=== PATIENT | male | born 1960 | race African-American/Black ===

== ENCOUNTER 2016-04-19 19:25 | Emergency (ER) | payer MEDICAID ==
[2016-04-19 19:38] VITALS: BP 106/62; PULSE 102; TEMP 99.1; BMI 19.8
--- NOTE | 2016-04-19 20:14 | DIRPT ---
CLINICAL DATA: Slipped and fell on steps EXAM: SACRUM AND COCCYX - 2+ VIEW COMPARISON: CT abdomen pelvis 07/01/2008 FINDINGS: No evidence of displaced fracture of the sacrum or coccyx. Hips are located.. IMPRESSION: No evidence fracture. Electronically Signed By: Cirilo Gee M.D. On: 04/19/2016 20:12
--- NOTE | 2016-04-19 20:18 | DIRPT ---
CLINICAL DATA: 55-year-old male with a history of fall. Elbow pain. EXAM: LEFT ELBOW - COMPLETE 3+ VIEW COMPARISON: 12/03/2014 FINDINGS: Postsurgical changes of prior distal humerus fixation, proximal ulnar fixation, and associated posttraumatic deformity. No acute fracture identified. No significant soft tissue swelling. Alignment is unchanged from the comparison. IMPRESSION: Similar appearance of post surgical fixation of distal humerus fracture and proximal ulnar fracture, with posttraumatic deformity. No evidence of acute bony abnormality. Signed, Cachorro Multani DO [facility] Electronically Signed By: Cachorro Multani D.O. On: 04/19/2016 20:16
--- NOTE | 2016-04-19 20:40 | EDPRACDOC ---
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 Denies LOC, vision changes, n/v, cp, sob, abd pain, loss of control bowel or bladder, numbness. Pain Severity: Reports: Moderate Injuries/Pain Location: Reports: upper extremity, back Reason for Fall: Reports: slipped Loss of Consciousness: no loss of consciousness Modifying Factors: worse with: cold therapy, immobilization, jarring, movement, pain medication, rest, other Associated Symptoms (Fall): Reports: denies symptoms Allergies/Adverse Reactions: Allergies ibuprofen Allergy (Severe, Verified 03/30/16 10:28) Bleeding tramadol Allergy (Verified 03/30/16 10:28) Bleeding Home Medications: Ambulatory Orders Cyclobenzaprine HCl [Flexeril] 10 mg PO TID PRN #15 tablet 04/07/16 Hydrocodone Bit/Acetaminophen [Lortab 5/325] 1 tab PO Q4-6H PRN #10 tab Oxycodone HCl/Acetaminophen [Percocet 10-325 mg Tablet] 1 each PO BID 04/07/16 Acetaminophen [Tylenol] 650 mg PO Q6H PRN #30 tablet 04/19/16 Cyclobenzaprine HCl [Flexeril] 10 mg PO TID PRN #15 tablet 04/19/16 ED Past Medical History - History Reviewed Yes Nurses notes reviewed and agree except as marked - Patient Medical History Musculoskeletal History: Reports: Arthritis Psychological History: Reports: Depression Additional Past Medical History: Chronic Pain Syndrome Surgical History: Reports: Other (Elbow Surgery; FACIAL [employer] SX) - Social Medical History Smoking Status: Light tobacco smoker (less than 5/day) ETOH: Social Substance Abuse: None EDM Review of Systems - Review of Systems Constitutional: No Symptoms Reported. negative: Fever, Chills, Weakness, Fatigue, Loss of Appetite Eyes: No Symptoms Reported. negative: Redness, Blurred Vision, Double Vision, Discharge, Pain, Light Sensitive, Photophobia Respiratory: No Symptoms Reported. negative: Cough, Brassy Cough, Barky Cough, Shortness of Breath, Wheezing, Hemoptysis Cardiovascular: No Symptoms Reported. negative: Chest Pain, Palpitations, Syncope, Edema, Orthopnea, PND, Skin Mottling, Cyanosis Gastrointestinal: No Symptoms Reported. negative: Pain, Constipation, Nausea, Vomiting, Diarrhea, Melena, Formula Intolerance Genitourinary: No Symptoms Reported. negative: Dysuria, Hematuria, Frequency, Discharge, Bleeding, Testicular Pain, Neurological: No Symptoms Reported. negative: Headache, Dizziness, Seizure, Numbness, Weakness, Speech Difficulty, Gait Difficulty Musculoskeletal: Back, Elbow Integumentary: No Symptoms Reported. negative: Itching, Rash, Bruising, Wound Allergic/Immunologic: No Symptoms Reported. negative: Hives, Itching Hematologic: No Symptoms Reported. negative: Lymphadenopathy, Easy Bruising, Easy Bleeding Psychiatric: No Symptoms Reported. negative: Anxiety, Depression, Hallucinations, Insomnia, Suicidal - Physical Exam Constitutional: Alert (Awake), No apparent distress Oriented to: Time, Person, Place Last recorded Vital Signs: Last Vital Signs Temp 99.1 F 04/19/16 19:34 Pulse 102 04/19/16 19:34 Resp 20 04/19/16 19:34 BP 106/62 04/19/16 19:34 Pulse Ox 98 04/19/16 19:34 Oxygen Pulse Oxygen Saturation 98 O2 Device Room Air Oxygen Flow Rate Fraction of Inspired Oxygen ( FIO2) - HEENT Head: Normal ( normocephalic) Eye Exam: Normal (PERRL, EOMI, Sclera white) Neck: Normal (FROM, trachea at midline) - Respiratory/Cardiovascular Respiratory: Normal - CTA (BBS clear to auscultation without adventitious sounds ) Cardiovascular: Normal (RRR without murmur, gallop or rub) - GI Auscultation: Normal (NABS) Palpation: Normal (Soft,No rebound or guarding, non distended) Tenderness: Non tender - Musculoskeletal Back: Normal (Non-Tender) Extremities: Normal (Normal tone, Pulses 2+ No cyanosis or edema, FROM) - Integumentary Skin: Normal, Warm, Dry Lymphatics: Normal (no adenopathy) - Neurologic Memory Impaired: Normal Motor Function: Normal (Normal tone, Pulses 2+ No cyanosis or edema, FROM) Mood Description: Normal Perception: Normal ED Injury/Fall Exam - Physical Exam Head Injury: no evidence of injury Extremity Exam: no evidence of injury, normal range of motion, non-tender, no pedal edema Skin: Normal, Warm, Dry - Aren Coma Score Best Eye Response (Aren): (4) open spontaneously Best Verbal Response (Aren): (5) oriented Best Motor Response (Lamona): (6) obeys commands [place]ona Total: 15 - Differential Diagnosis Contusion, Fracture, Mechanical Fall, Sprain, Strain - Diagnostic Imaging Elbow Image interpreted by: Radiologist IMPRESSION: Similar appearance of post surgical fixation of distal humerus fracture and proximal ulnar fracture, with posttraumatic deformity. No evidence of acute bony abnormality. L-Spine Image interpreted by: Radiologist IMPRESSION: No evidence fracture. Decision Time to Discharge: 20:37 - Departure Disposition: Home Condition: Good Final Diagnosis: Coccyx contusion Qualifiers: Encounter type: initial encounter Qualified Code(s): S30.0XXA - Contusion of lower back and pelvis, initial encounter Strain of left elbow Qualifiers: Encounter type: initial encounter Qualified Code(s): S56.912A - Strain of unspecified muscles, fascia and tendons at forearm level, left arm, initial encounter Instructions: RICE: Routine Care for Injuries, Coccyx Injury (ED), Elbow Sprain (ED) Education/Counseling Given To: Patient Education/Counseling Given Regarding: Diagnosis, Treatment, Follow Up Referrals: None,No Provider [Primary Care Provider] - One Week Kary Rodriguez MD [Staff Physician] - One Week Florian Combs MD [Staff Physician] - One Week Prescriptions: Acetaminophen [Tylenol] 650 mg PO Q6H PRN #30 tablet PRN Reason: Pain Cyclobenzaprine HCl [Flexeril] 10 mg PO TID PRN #15 tablet PRN Reason: Pain Additional Instructions: Follow up with Personal MD for further pain management.
== END 2016-04-19 20:44 | disposition home or self-care (01) ==
LOC: EDMC 19:25
DX: S30.0XXA Contusion of lower back and pelvis, initial encounter (principal); S56.912A Strain of unspecified muscles, fascia and tendons at forearm level, left arm, initial encounter; W01.0XXA Fall on same level from slipping, tripping and stumbling without subsequent striking against object, initial encounter; Y93.9 Activity, unspecified
CPT/HCPCS: 72220; 99283

== ENCOUNTER 2016-04-20 07:37 | Emergency (ER) | payer MEDICAID ==
[2016-04-20 07:52] VITALS: TEMP 98.3; BMI 18.3
[2016-04-20] MEDS ORDERED: OXYCODONE HCL 5 MG TABLET PO ONE (08:45)
--- NOTE | 2016-04-20 08:48 | EDPRACDOC ---
- General Chief Complaint: Fall Stated Complaint: FALL,TAILBONE PAIN Time Seen by Provider: 04/20/16 08:35 Information Source: Patient - History of Present Illness Onset: last night HPI: PATIENT STATES HE FELL BACKWARD LAST NIGHT FROM STANDING. COMPLAINS OF COCCYX PAIN. STATE HE WAS EVALUATED LAST NIGHT WITH XRAYS AND STATES NO FRACTURES. GIVE TYLENOL FOR HOME WHICH HE STATES IS NOT HELPING. Pain Severity: Reports: Mild Injuries/Pain Location: Reports: back Reason for Fall: Reports: lost balance Loss of Consciousness: no loss of consciousness Allergies/Adverse Reactions: Allergies ibuprofen Allergy (Severe, Verified 04/20/16 07:50) Bleeding tramadol Allergy (Verified 04/20/16 07:50) Bleeding Home Medications: Ambulatory Orders Cyclobenzaprine HCl [Flexeril] 10 mg PO TID PRN #15 tablet 04/07/16 Hydrocodone Bit/Acetaminophen [Lortab 5/325] 1 tab PO Q4-6H PRN #10 tab Oxycodone HCl/Acetaminophen [Percocet 10-325 mg Tablet] 1 each PO BID 04/07/16 Acetaminophen [Tylenol] 650 mg PO Q6H PRN #30 tablet 04/19/16 Cyclobenzaprine HCl [Flexeril] 10 mg PO TID PRN #15 tablet 04/19/16 Oxycodone HCl/Acetaminophen [Percocet 5-325 mg Tablet] 1 each PO Q4 #14 tablet 04/20/16 ED Past Medical History - History Reviewed Yes Nurses notes reviewed and agree except as marked Travel Outside of [place] in the Last 3 Months?: No - Patient Medical History Musculoskeletal History: Reports: Arthritis Psychological History: Denies: Depression Additional Past Medical History: Chronic Pain Syndrome Surgical History: Reports: Other (Elbow Surgery; FACIAL RECONSTRUCTIVE SX) - Social Medical History Smoking Status: Light tobacco smoker (less than 5/day) Lives With: Family Lives In: Home EDM Review of Systems - Review of Systems ROS Negative Except as Marked: Yes All systems reviewed and were negative except as marked Constitutional: No Symptoms Reported. negative: Chills, Fever, Fatigue, Loss of Appetite, Weakness Eyes: No Symptoms Reported. negative: Redness, Blurred Vision, Double Vision, Discharge, Pain, Light Sensitive, Photophobia Ears: No Symptoms Reported. negative: Pain, Hearing Loss, Drainage, Ear Pulling Throat: No Symptoms Reported. negative: Pain, Swelling Nose: No Symptoms Reported. negative: Congestion, Bleeding, Discharge, Injection, Swelling, Deformity, Ecchymosis, Tender, Abrasion, Laceration Mouth: No Symptoms Reported. negative: Pain, Drooling Respiratory: No Symptoms Reported. negative: Cough, Brassy Cough, Barky Cough, Shortness of Breath, Wheezing, Hemoptysis Cardiovascular: No Symptoms Reported. negative: Chest Pain, Palpitations, Syncope, Edema, Orthopnea, PND, Skin Mottling, Cyanosis Gastrointestinal: No Symptoms Reported. negative: Pain, Constipation, Nausea, Vomiting, Diarrhea, Melena, Formula Intolerance Genitourinary: No Symptoms Reported. negative: Dysuria, Hematuria, Frequency, Discharge, Bleeding, Testicular Pain, Neurological: No Symptoms Reported. negative: Headache, Dizziness, Seizure, Numbness, Weakness, Speech Difficulty, Gait Difficulty Musculoskeletal: Back. negative: Arm, Ankle, Chestwall, Elbow, Forearm, Femur, Foot, Hand, Hip, Knee, Leg, Neck, Pelvis, Ribs, Shoulder, Wrist Integumentary: No Symptoms Reported. negative: Itching, Rash, Bruising, Wound Allergic/Immunologic: No Symptoms Reported. negative: Hives, Itching Hematologic: No Symptoms Reported. negative: Lymphadenopathy, Easy Bruising, Easy Bleeding Endocrine: No Symptoms Reported. negative: Weight Gain, Weight Loss Psychiatric: No Symptoms Reported. negative: Anxiety, Depression, Hallucinations, Insomnia, Suicidal - Physical Exam Constitutional: Alert (Awake), No apparent distress Oriented to: Time, Person, Place Last recorded Vital Signs: Last Vital Signs Temp 98.3 F 04/20/16 07:50 Pulse 79 04/20/16 07:50 Resp 18 04/20/16 07:50 BP 128/72 04/20/16 07:50 Pulse Ox 98 04/20/16 07:50 Oxygen Pulse Oxygen Saturation 98 O2 Device Room Air Oxygen Flow Rate Fraction of Inspired Oxygen ( FIO2) - HEENT Head: Normal ( normocephalic) Eye Exam: Normal (PERRL, EOMI, Sclera white) Oropharynx: Normal (Pharynx:Moist without exudate,Gums-no swelling) Tympanic Membrane: Normal ENT EAC: Normal TMJ: Normal Nose: No Symptoms Reported (septum midline) Neck: Normal (FROM, trachea at midline) - Respiratory/Cardiovascular Respiratory: Normal - CTA (BBS clear to auscultation without adventitious sounds ) Cardiovascular: Normal (RRR without murmur, gallop or rub) - GI Auscultation: Normal (NABS) Palpation: Normal (Soft,No rebound or guarding, non distended) Tenderness: Non tender Ramirez's Sign: Negative - Musculoskeletal Back: Other (TENDERNESS OVER SACRUM) Extremities: Normal (Normal tone, Pulses 2+ No cyanosis or edema, FROM) - Integumentary Skin: Normal, Warm, Dry Lymphatics: Normal (no adenopathy) - Neurologic Memory Impaired: Normal Motor Function: Normal (Normal tone, Pulses 2+ No cyanosis or edema, FROM) Cranial Nerve: Normal (CN II-X11 intact sensation, strength 5/5) Cerebellar: Normal Mood Description: Normal Thought: Coherent Perception: Normal Decision Time to Discharge: 08:48 - Departure Yes I personally saw and evaluated the patient. Disposition: Home Condition: Good Final Diagnosis: Low back pain Qualifiers: Chronicity: acute Back pain laterality: right Sciatica presence: without sciatica Qualified Code(s): M54.5 - Low back pain Instructions: RICE: Routine Care for Injuries, Core Strengthening Exercises ( GEN), Back Pain Education/Counseling Given To: Patient Education/Counseling Given Regarding: Diagnosis, Treatment, Prognosis, Follow Up Referrals: None,No Provider [Primary Care Provider] - One Week Nessa Guardado MD [Staff Physician] - One Week Prescriptions: Oxycodone HCl/Acetaminophen [Percocet 5-325 mg Tablet] 1 each PO Q4 #14 tablet
[2016-04-20 09:20] VITALS: BP 129/63; PULSE 75
== END 2016-04-20 09:11 | disposition home or self-care (01) ==
LOC: ED 07:37
DX: M54.5 Low back pain (principal); W01.0XXA Fall on same level from slipping, tripping and stumbling without subsequent striking against object, initial encounter; G89.4 Chronic pain syndrome; F17.210 Nicotine dependence, cigarettes, uncomplicated; Z79.891 Long term (current) use of opiate analgesic
CPT/HCPCS: 99283; J3490